=== PATIENT | male | born 1985 | race Caucasian/White ===

== ENCOUNTER 2018-06-19 15:33 | Emergency (ER) | payer OTHER ==
[~2018-06-19] VITALS: Ht 177.8 cm; Wt 122.7 kg
[2018-06-19 15:58] VITALS: BP 144/91
[2018-06-19] MEDS ORDERED: ACETAMINOPHEN 325 MG TABLET PO ONE (16:15)
[2018-06-19] MEDS ORDERED: AMOX TR/POT CLAV 875 MG/125 MG TABLET PO ONE (16:15)
== END 2018-06-19 16:25 | disposition home or self-care (01) ==
LOC: EMS 15:37
DX: L03.221 Cellulitis of neck (principal)
CPT/HCPCS: 99283